=== PATIENT | female | born 2000 | race American Indian/Alaskan Native ===

== ENCOUNTER 2022-05-02 11:38 | Outpatient (CLI) | payer MEDICAID ==
[2022-05-02 12:34] VITALS: BP 134/87
--- NOTE | 2022-05-02 13:19 | Ultrasound Report ---
US OB BPP wo non-stress, US OB limited INDICATION / CLINICAL INFORMATION: well being. COMPARISON: None available. FINDINGS: BREATHING MOVEMENT = 2 GROSS BODY MOVEMENT = 2 TONE = 2 QUALITATIVE AMNIOTIC FLUID VOLUME = 2 TOTAL BIOPHYSICAL SCORE = 8/8 AMNIOTIC FLUID INDEX (cm) = 9.3 PRESENTATION: Cephalic. HEART RATE (beats per minute): 155 IMPRESSION: 1. biophysical profile = 88 2. Amniotic fluid index is within normal limits, measuring 9.3 cm. Signer Name: Kenn Schmitz MD Signed: 05/02/2022 1:15 PM Workstation Name: [id number]
[2022-05-02] MEDS ORDERED: LACTATED RINGERS 500 ML IV ONE (14:36)
== END 2022-05-02 14:38 | disposition home or self-care (01) ==
LOC: TRG 11:38 → APU 11:41 → TRG 14:38
PROVIDERS: ATTEND Obstetrics & Gynecology
DX: Z34.93 Encounter for supervision of normal pregnancy, unspecified, third trimester (principal); Z3A.36 36 weeks gestation of pregnancy
CPT/HCPCS: 76815; 76819; 87116

== ENCOUNTER 2022-05-09 21:37 | Inpatient (IN) | payer MEDICAID ==
[2022-05-09 22:49] LABS: Hematocrit 29.8 % (30.3-42.9); Hemoglobin 9.9 gm/dl (10.1-14.3); Mean Corpuscular HGB Conc 33 % (30-34); Mean Corpuscular Volume 87 fl (79-97); Platelet Count 241 K/mm3 (140-440); Red Blood Count 3.43 M/mm3 (3.65-5.03); Red Cell Distribution Width 12.9 % (13.2-15.2)
[2022-05-09 23:03] LABS: Creatinine,Urine 206.1 mg/dL (0.1-20.0)
[2022-05-09 23:19] LABS: Alanine Aminotransferase 25 units/L (7-56); Albumin 2.7 g/dL (3.9-5); BUN/Creatinine Ratio 14; Blood Urea Nitrogen 11 mg/dL (7-17); Calcium 8.7 mg/dL (8.4-10.2); Hemolysis Index 10
[2022-05-09 23:27] LABS: Bacteria,Urine 1+ /HPF (Negative); Mucus,Urine 1+ /HPF
[2022-05-09 23:30] LABS: Bilirubin,Urine Negative (Negative); Color,Urine Yellow (Yellow)
[2022-05-09 23:31] LABS: Blood,Urine Negative (Negative)
[2022-05-09] MEDS ORDERED: LACTATED RINGERS 1,000 ML ONE (23:33)
[2022-05-09] MEDS ORDERED: LACTATED RINGERS 1,000 ML IV ONE (23:34)
[2022-05-10 00:14] LABS: Basophils % (Manual) 0 % (0.0-1.8); Total Cells Counted 100
[2022-05-10] MEDS ORDERED: fentaNYL 100 MCG/2 ML INJ IV PRN (00:26)
[2022-05-10] MEDS ORDERED: BUTORPHANOL 2 MG/1 ML INJ IV PRN (00:26)
[2022-05-10] MEDS ORDERED: ePHEDrine SULFATE 50 MG/1 ML INJ IV PRN (00:26)
[2022-05-10] MEDS ORDERED: TERBUTALINE 1 MG/1 ML INJ SUB-Q PRN (00:26)
[2022-05-10] MEDS ORDERED: CARBOPROST TROMETHAMINE 250 MCG/1 ML INJ IM PRN (00:26)
[2022-05-10 00:31] LABS: Platelet Estimate Consistent w Auto
--- NOTE | 2022-05-10 00:31 | History and Physical Report ---
History of Present Illness Date of examination: 05/10/22 Date of admission: 05/10/2022 Chief complaint: New onset seizure History of present illness: 21-year-old primigravida at 37-4/7 weeks gestation presents to OB triage via EMS after having a witnessed grand mal seizure at home. There is an associated headache. There is no diplopia, right upper quadrant pain, or scotomata. The patient is disoriented. She follows commands. She is oriented to place and person. She is not oriented to time. She does not have a history of seizure disorder. She receives care at [facility]; her care provider (Dr. Anusha Hemphill) happened to be in OB triage to evaluate this patient with me. Dr. Hemphill explained that this patient did not appear to be behaving as her usual self. The patient's family members have witnessed the grand mal seizure concurred. The patient appeared to be in the postictal state. UPCR performed in OB triage revealed proteinuria. Urine drug screen was negative. 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 There were no elevated blood pressures After taking the totality of all of this data into consideration, eclampsia was considered to be the most likely etiology. As such, the patient was admitted to labor and delivery for management of eclampsia and induction of labor. Past History Past Medical History: other (Systemic lupus erythematosus, Sjogren's syndrome) Past Surgical History: no surgical history Family/Genetic History: none Social history: no significant social history - Obstetrical History Expected Date of Delivery: 05/27/22 Actual Gestation: 37 Week(s) 4 Day(s) : 1 Para: 0 Medications and Allergies Allergies Allergy/AdvReac Type Severity Reaction Status Date / Time No Known Allergies Allergy Unverified 05/02/22 12:28 Active Meds: Active Medications Acetaminophen (Acetaminophen 325 Mg Tab) 650 mg PO Q4H PRN PRN Reason: Pain, Mild (1-3) Butorphanol Tartrate (Butorphanol 2 Mg/1 Ml Inj) 2 mg IV Q2H PRN PRN Reason: Pain, Moderate(4-6) LABOR PAIN Carboprost Tromethamine (Carboprost Tromethamine 250 Mcg/1 Ml Inj) 250 mcg IM ONCE PRN PRN Reason: Uterine Bleeding Ephedrine Sulfate (Ephedrine Sulfate 50 Mg/1 Ml Inj) 10 mg IV Q2M PRN PRN Reason: Hypotension Fentanyl (Fentanyl 100 Mcg/2 Ml Inj) 100 mcg IV Q2H PRN PRN Reason: Pain,Severe (7-10) LABOR PAIN Lactated Ringer's (Lactated Ringers) 1,000 mls @ 125 mls/hr IV DIRECT SANDRO Oxytocin/Sodium Chloride (Pitocin/Ns 30 Unit/500ml) 30 units in 500 mls @ 40 mls/hr IV TITR SANDRO; Protocol Misoprostol (Misoprostol 25 Mcg Tab) 25 mcg PO Q4H SANDRO Stop: 05/10/22 13:01 Terbutaline Sulfate (Terbutaline 1 Mg/1 Ml Inj) 0.25 mg SUB-Q ONCE PRN PRN Reason: Hyperstimulation/Hypertonicity Review of Systems All systems: negative - Vital Signs Vital signs: Vital Signs Pulse Pulse Ox 143 H 95 05/09/22 21:46 05/09/22 21:46 Temp Pulse Resp BP Pulse Ox 100.5 F H 128 H 18 101/60 97 05/09/22 21:48 05/10/22 00:28 05/09/22 21:48 05/10/22 00:22 05/10/22 00:28 - Physical Exam Breasts: Positive: normal Cardiovascular: Regular rate Lungs: Positive: Normal air movement Abdomen: Positive: normal appearance, normal bowel sounds Vulva: both: normal Vagina: Positive: normal moisture Uterus: Positive: enlarged Adnexa: both: normal Anus/Rectum: Positive: normal perianal skin Extremities: Positive: normal Deep Tendon Reflex Grade: Normal +2 - Obstetrical FHR: category 1 Cervical Dilatation: 0 Cervical Effacement Percentage: 0 station: -3 Uterine Contraction Pattern: Absent Results Result Diagrams: 05/10/22 01:26 05/09/22 22:30 Abnormal lab results 05/09/22 05/09/22 05/09/22 Range/Units 22:30 22:30 22:30 RBC 3.43 L (3.65-5.03) M/mm3 Hgb 9.9 L (10.1-14.3) gm/dl Hct 29.8 L (30.3-42.9) % RDW 12.9 L (13.2-15.2) % Sodium 131 L (137-145) mmol/L Carbon Dioxide 17 L (22-30) mmol/L Alkaline Phosphatase 163 H (35-129) units/L Total Protein 8.4 H (6.3-8.2) g/dL Albumin 2.7 L (3.9-5) g/dL Urine WBC (Auto) 54.0 H (0.0-6.0) /HPF Urine Creatinine (0.1-20.0) mg/dL Urine Total Protein (5-11.8) mg/dL 05/09/22 Range/Units 22:30 RBC (3.65-5.03) M/mm3 Hgb (10.1-14.3) gm/dl Hct (30.3-42.9) % RDW (13.2-15.2) % Sodium (137-145) mmol/L Carbon Dioxide (22-30) mmol/L Alkaline Phosphatase (35-129) units/L Total Protein (6.3-8.2) g/dL Albumin (3.9-5) g/dL Urine WBC (Auto) (0.0-6.0) /HPF Urine Creatinine 206.1 H (0.1-20.0) mg/dL Urine Total Protein 92 H (5-11.8) mg/dL Urine Protein to Creatinine Ratio (UPCR)= 0.44. There is significant proteinuria. Estimated 24 hour urine protein= 553 mg Urine toxicology screen was negative. Ultrasound: report reviewed (OB Ultrasound Limited= SLIUP. Anterior placenta. Vertex. EFW= 2573 g (18th %-ile). KAYE= 12.9 cm.), image reviewed (CT head= possible PRES) Assessment and Plan - Patient Problems (1) 37 weeks gestation of Current Visit: Yes Status: Acute Plan to address problem: care is up-to-date at [facility]. (2) Eclampsia affecting in third trimester Current Visit: Yes Status: Acute Plan to address problem: Although this patient does not have a clear hypertensive disorder of (apart from isolated proteinuria), the diagnosis of eclampsia can be made in a person with seizures who has the typical clinical and neuroimaging findings of reversible posterior leukoencephalopathy syndrome (Am J Obstet Gynecol. 2016 May;215(2):239.e1-5.) Hence, out of an abundance of caution, I believe that the most plausible reason for this patient's new onset seizure is eclampsia. Start intravenous magnesium sulfate for seizure prophylaxis and move forward with induction of labor for delivery. (3) Encounter for induction of labor Current Visit: Yes Status: Acute Plan to address problem: Cytotec 25 mcg p.o. every 4 hours was ordered for cervical ripening. Cook's catheter is to be placed for further cervical ripening. A dose of IMN is to be administered as well.
[2022-05-10 00:34] LABS: Anisocytosis 1+
[2022-05-10 00:35] LABS: Amphetamine Screen,Urine PRESUMPTIVE NEGATIVE; Benzodiazepines Screen,Urine PRESUMPTIVE NEGATIVE; Cannabinoid Screen,Urine PRESUMPTIVE NEGATIVE; Cocaine Screen,Urine PRESUMPTIVE NEGATIVE; Methadone Screen,Urine PRESUMPTIVE NEGATIVE; Opiate Screen,Urine PRESUMPTIVE NEGATIVE
[2022-05-10] MEDS ORDERED: miSOPROStol 25 MCG TAB PO SCH (01:00)
[2022-05-10] MEDS ORDERED: OXYTOCIN DRIP 30 UNITS/500 ML BAG IV SCH ×2 (01:00→20:00)
--- NOTE | 2022-05-10 01:50 | Cat Scan Report ---
CT HEAD WITHOUT CONTRAST INDICATION / CLINICAL INFORMATION: , new onset sezure, please eval for PRES. TECHNIQUE: CT head was performed without administration of intravenous contrast. All CT scans at this location are performed using CT dose reduction for ALARA by means of automated exposure control. COMPARISON: None available. FINDINGS: CEREBRAL HEMISPHERES: Some motion artifact is present however there appears to be bilateral mild symm etric hypoattenuation of occipital white matter. Sparks-white matter distinction is otherwise within no rmal limits. No midline shift. No mass effect. Basal cisterns are patent. HEMORRHAGE: None. CEREBELLUM / BRAINSTEM: No significant abnormality. ORBITS: No significant abnormality. SOFT TISSUES: No significant abnormality. SKULL: No significant abnormality. PARANASAL SINUSES / MASTOID AIR CELLS: Normal as visualized. ADDITIONAL FINDINGS: None. IMPRESSION: 1. Subtle hypoattenuation in the bilateral occipital white matter extending to subcortical white [place] er is suggested which could be compatible with posterior reversible encephalopathy syndrome. MRI is r ecommended for further characterization. Signer Name: Joby Burger II, MD Signed: 05/10/2022 1:45 AM Workstation Name: [id number]
--- NOTE | 2022-05-10 01:57 | Ultrasound Report ---
US OB follow up INDICATION / CLINICAL INFORMATION: efw,kaye,placenta COMPARISON: Limited OB ultrasound 05/02/2022. TECHNIQUE: Using a transcutaneous probe, multiple grayscale, color Doppler, and spectral Doppler imag es of the uterus and fetus were captured and stored. FINDINGS: A single cephalic fetus is demonstrated heart rate 168 bpm. The amniotic fluid index is within normal limits measuring 12.9 cm. A grade 1 placenta is present within the left lateral/fundal location. Biparietal Diameter = 9.2 cm = 37, 1 weeks, days Head Circumference = 32.1 cm = 36, 2 weeks, days Abdominal Circumference = 31.8 cm = 35, 5 weeks, days Femur Length = 6.8 cm = 34, 6 weeks, days Average Ultrasound Age (AUA) = 36, 0 weeks, days. EDC 06/06/2022. Clinical aspect of gestational age based on LMP of 08/20/2021 is 37 weeks 3 days. Estimated weight = 2753 g. Growth percentile is 18%. IMPRESSION: 1. Single living fetus with estimated weight of 2753 g, normal KAYE, and no ultrasound abnormali ty of the placental margin or interface.. Signer Name: Joby Burger II, MD Signed: 05/10/2022 1:52 AM Workstation Name: [id number]
[2022-05-10 02:01] LABS: Hematocrit 30.8 % (30.3-42.9); Hemoglobin 10.6 gm/dl (10.1-14.3)
[2022-05-10] MEDS: LACTATED RINGERS 1,000 ML IV SCH ×2 (04:19→18:57)
[2022-05-10] MEDS: ACETAMINOPHEN 325 MG TAB PO PRN ×2 (04:32→19:42)
[2022-05-10] MEDS ORDERED: MAGNESIUM SULFATE 4 GM/100 ML BAG IV ONE (06:00)
[2022-05-10] MEDS ORDERED: MAGNESIUM SULFATE 2 GM/50 ML BAG IV ONE (06:00)
[2022-05-10] MEDS: MAGNESIUM SULFATE 40GM/1000ML 40 GM/1,000 ML BAG IV SCH (07:30)
--- NOTE | 2022-05-10 18:09 | Progress Note ---
Assessment and Plan A: 37.4 weeks - Eclampsia on Magnesium P: Continue magnesium Mcclellan Bulb out Start Pitocin Subjective - Subjective Date of service: 05/10/22 Principal diagnosis: 37.4 weeks Eclampsia Objective - Vital Signs Vital Signs: Vital Signs - 12hr 05/10/22 05/10/22 05/10/22 06:09 06:14 06:19 Temperature Pulse Rate 96 H 101 H 112 H Respiratory Rate Blood Pressure O2 Sat by Pulse 97 97 96 Oximetry O2 Sat by Pulse Oximetry [ Posterior Bilateral Throughout] 05/10/22 05/10/22 05/10/22 06:24 06:29 06:34 Temperature Pulse Rate 94 H 105 H 104 H Respiratory Rate Blood Pressure O2 Sat by Pulse 97 99 97 Oximetry O2 Sat by Pulse Oximetry [ Posterior Bilateral Throughout] 05/10/22 05/10/22 05/10/22 06:39 06:44 06:47 Temperature Pulse Rate 101 H 91 H 85 Respiratory Rate Blood Pressure 127/75 O2 Sat by Pulse 97 96 Oximetry O2 Sat by Pulse Oximetry [ Posterior Bilateral Throughout] 05/10/22 05/10/22 05/10/22 06:49 06:54 06:59 Temperature Pulse Rate 99 H 97 H 91 H Respiratory Rate Blood Pressure O2 Sat by Pulse 98 97 98 Oximetry O2 Sat by Pulse Oximetry [ Posterior Bilateral Throughout] 05/10/22 05/10/22 05/10/22 07:04 07:09 07:14 Temperature Pulse Rate 96 H 99 H 110 H Respiratory Rate Blood Pressure O2 Sat by Pulse 98 99 98 Oximetry O2 Sat by Pulse Oximetry [ Posterior Bilateral Throughout] 05/10/22 05/10/22 05/10/22 07:17 07:19 07:24 Temperature Pulse Rate 93 H 85 81 Respiratory Rate Blood Pressure 118/72 O2 Sat by Pulse 98 98 Oximetry O2 Sat by Pulse Oximetry [ Posterior Bilateral Throughout] 05/10/22 05/10/22 05/10/22 07:29 07:34 07:39 Temperature Pulse Rate 94 H 93 H 96 H Respiratory Rate Blood Pressure O2 Sat by Pulse 97 98 97 Oximetry O2 Sat by Pulse Oximetry [ Posterior Bilateral Throughout] 05/10/22 05/10/22 05/10/22 07:44 07:48 07:49 Temperature Pulse Rate 96 H 94 H 97 H Respiratory Rate Blood Pressure 123/74 O2 Sat by Pulse 97 97 Oximetry O2 Sat by Pulse Oximetry [ Posterior Bilateral Throughout] 05/10/22 05/10/22 05/10/22 07:54 07:59 08:04 Temperature Pulse Rate 95 H 97 H 94 H Respiratory Rate Blood Pressure O2 Sat by Pulse 97 98 97 Oximetry O2 Sat by Pulse Oximetry [ Posterior Bilateral Throughout] 05/10/22 05/10/22 05/10/22 08:09 08:14 08:17 Temperature Pulse Rate 100 H 95 H 95 H Respiratory Rate Blood Pressure 122/77 O2 Sat by Pulse 97 98 Oximetry O2 Sat by Pulse Oximetry [ Posterior Bilateral Throughout] 05/10/22 05/10/22 05/10/22 08:19 08:24 08:27 Temperature 97.8 F Pulse Rate 98 H 94 H Respiratory 20 Rate Blood Pressure O2 Sat by Pulse 97 96 Oximetry O2 Sat by Pulse Oximetry [ Posterior Bilateral Throughout] 05/10/22 05/10/22 05/10/22 08:29 08:31 08:34 Temperature Pulse Rate 96 H 95 H Respiratory Rate Blood Pressure O2 Sat by Pulse 97 97 Oximetry O2 Sat by Pulse 98 Oximetry [ Posterior Bilateral Throughout] 05/10/22 05/10/22 05/10/22 08:39 08:44 08:49 Temperature Pulse Rate 96 H 87 92 H Respiratory Rate Blood Pressure 120/73 O2 Sat by Pulse 97 97 97 Oximetry O2 Sat by Pulse Oximetry [ Posterior Bilateral Throughout] 05/10/22 05/10/22 05/10/22 08:54 08:59 09:04 Temperature Pulse Rate 93 H 94 H 92 H Respiratory Rate Blood Pressure O2 Sat by Pulse 97 97 97 Oximetry O2 Sat by Pulse Oximetry [ Posterior Bilateral Throughout] 05/10/22 05/10/22 05/10/22 09:09 09:14 09:17 Temperature Pulse Rate 99 H 92 H 90 Respiratory Rate Blood Pressure 124/74 O2 Sat by Pulse 97 97 Oximetry O2 Sat by Pulse Oximetry [ Posterior Bilateral Throughout] 05/10/22 05/10/22 05/10/22 09:19 09:24 09:29 Temperature Pulse Rate 88 91 H 90 Respiratory Rate Blood Pressure O2 Sat by Pulse 98 98 98 Oximetry O2 Sat by Pulse Oximetry [ Posterior Bilateral Throughout] 05/10/22 05/10/22 05/10/22 09:34 09:39 09:44 Temperature Pulse Rate 91 H 87 89 Respiratory Rate Blood Pressure O2 Sat by Pulse 99 97 98 Oximetry O2 Sat by Pulse Oximetry [ Posterior Bilateral Throughout] 05/10/22 05/10/22 05/10/22 09:48 09:49 09:54 Temperature Pulse Rate 89 87 91 H Respiratory Rate Blood Pressure 119/70 O2 Sat by Pulse 98 97 Oximetry O2 Sat by Pulse Oximetry [ Posterior Bilateral Throughout] 05/10/22 05/10/22 05/10/22 09:59 10:04 10:09 Temperature Pulse Rate 91 H 91 H 91 H Respiratory Rate Blood Pressure O2 Sat by Pulse 98 98 98 Oximetry O2 Sat by Pulse Oximetry [ Posterior Bilateral Throughout] 05/10/22 05/10/22 05/10/22 10:14 10:17 10:19 Temperature Pulse Rate 91 H 92 H 92 H Respiratory Rate Blood Pressure 115/64 O2 Sat by Pulse 97 97 Oximetry O2 Sat by Pulse Oximetry [ Posterior Bilateral Throughout] 05/10/22 05/10/22 05/10/22 10:24 10:29 10:34 Temperature Pulse Rate 94 H 92 H 94 H Respiratory Rate Blood Pressure O2 Sat by Pulse 98 98 98 Oximetry O2 Sat by Pulse Oximetry [ Posterior Bilateral Throughout] 05/10/22 05/10/22 05/10/22 10:39 10:44 10:47 Temperature Pulse Rate 95 H 92 H 94 H Respiratory Rate Blood Pressure 117/74 O2 Sat by Pulse 98 98 Oximetry O2 Sat by Pulse Oximetry [ Posterior Bilateral Throughout] 05/10/22 05/10/22 05/10/22 10:49 10:51 10:54 Temperature 97.8 F Pulse Rate 117 H 88 Respiratory 18 Rate Blood Pressure O2 Sat by Pulse 99 99 Oximetry O2 Sat by Pulse Oximetry [ Posterior Bilateral Throughout] 05/10/22 05/10/22 05/10/22 10:59 11:04 11:09 Temperature Pulse Rate 90 90 89 Respiratory Rate Blood Pressure O2 Sat by Pulse 99 98 98 Oximetry O2 Sat by Pulse Oximetry [ Posterior Bilateral Throughout] 05/10/22 05/10/22 05/10/22 11:14 11:19 11:24 Temperature Pulse Rate 89 90 92 H Respiratory Rate Blood Pressure O2 Sat by Pulse 98 99 98 Oximetry O2 Sat by Pulse Oximetry [ Posterior Bilateral Throughout] 05/10/22 05/10/22 05/10/22 11:29 11:34 11:39 Temperature Pulse Rate 94 H 92 H 91 H Respiratory Rate Blood Pressure O2 Sat by Pulse 97 98 98 Oximetry O2 Sat by Pulse Oximetry [ Posterior Bilateral Throughout] 05/10/22 05/10/22 05/10/22 11:44 11:49 11:54 Temperature Pulse Rate 96 H 88 92 H Respiratory Rate Blood Pressure 122/79 O2 Sat by Pulse 99 99 98 Oximetry O2 Sat by Pulse Oximetry [ Posterior Bilateral Throughout] 05/10/22 05/10/22 05/10/22 11:59 12:04 12:09 Temperature Pulse Rate 93 H 93 H 94 H Respiratory Rate Blood Pressure O2 Sat by Pulse 98 98 98 Oximetry O2 Sat by Pulse Oximetry [ Posterior Bilateral Throughout] 05/10/22 05/10/22 05/10/22 12:14 12:19 12:24 Temperature Pulse Rate 94 H 93 H 97 H Respiratory Rate Blood Pressure O2 Sat by Pulse 99 98 98 Oximetry O2 Sat by Pulse Oximetry [ Posterior Bilateral Throughout] 05/10/22 05/10/22 05/10/22 12:29 12:34 12:39 Temperature Pulse Rate 93 H 92 H 94 H Respiratory Rate Blood Pressure O2 Sat by Pulse 98 99 98 Oximetry O2 Sat by Pulse Oximetry [ Posterior Bilateral Throughout] 05/10/22 05/10/22 05/10/22 12:44 12:48 12:49 Temperature Pulse Rate 107 H 97 H 109 H Respiratory Rate Blood Pressure 118/72 O2 Sat by Pulse 98 98 Oximetry O2 Sat by Pulse Oximetry [ Posterior Bilateral Throughout] 05/10/22 05/10/22 05/10/22 12:54 12:59 13:04 Temperature Pulse Rate 92 H 96 H 96 H Respiratory Rate Blood Pressure O2 Sat by Pulse 98 97 98 Oximetry O2 Sat by Pulse Oximetry [ Posterior Bilateral Throughout] 05/10/22 05/10/22 05/10/22 13:09 13:14 13:19 Temperature Pulse Rate 96 H 97 H 97 H Respiratory Rate Blood Pressure O2 Sat by Pulse 98 97 98 Oximetry O2 Sat by Pulse Oximetry [ Posterior Bilateral Throughout] 05/10/22 05/10/22 05/10/22 13:24 13:29 13:34 Temperature Pulse Rate 97 H 96 H 106 H Respiratory Rate Blood Pressure O2 Sat by Pulse 98 99 98 Oximetry O2 Sat by Pulse Oximetry [ Posterior Bilateral Throughout] 05/10/22 05/10/22 05/10/22 13:39 13:44 13:48 Temperature Pulse Rate 94 H 98 H 109 H Respiratory Rate Blood Pressure 115/70 O2 Sat by Pulse 98 98 Oximetry O2 Sat by Pulse Oximetry [ Posterior Bilateral Throughout] 05/10/22 05/10/22 05/10/22 13:49 13:54 13:59 Temperature Pulse Rate 89 99 H 105 H Respiratory Rate Blood Pressure O2 Sat by Pulse 98 98 97 Oximetry O2 Sat by Pulse Oximetry [ Posterior Bilateral Throughout] 05/10/22 05/10/22 05/10/22 14:04 14:09 14:14 Temperature Pulse Rate 103 H 102 H 94 H Respiratory Rate Blood Pressure O2 Sat by Pulse 98 98 98 Oximetry O2 Sat by Pulse Oximetry [ Posterior Bilateral Throughout] 05/10/22 05/10/22 05/10/22 14:19 14:24 14:29 Temperature Pulse Rate 96 H 98 H 94 H Respiratory Rate Blood Pressure O2 Sat by Pulse 97 98 97 Oximetry O2 Sat by Pulse Oximetry [ Posterior Bilateral Throughout] 05/10/22 05/10/22 05/10/22 14:34 14:39 14:44 Temperature Pulse Rate 97 H 111 H 109 H Respiratory Rate Blood Pressure O2 Sat by Pulse 97 98 98 Oximetry O2 Sat by Pulse Oximetry [ Posterior Bilateral Throughout] 05/10/22 05/10/22 05/10/22 14:48 14:49 14:54 Temperature Pulse Rate 94 H 95 H 96 H Respiratory Rate Blood Pressure 96/57 O2 Sat by Pulse 97 98 Oximetry O2 Sat by Pulse Oximetry [ Posterior Bilateral Throughout] 05/10/22 05/10/22 05/10/22 14:59 15:04 15:09 Temperature Pulse Rate 94 H 94 H 96 H Respiratory Rate Blood Pressure O2 Sat by Pulse 97 97 97 Oximetry O2 Sat by Pulse Oximetry [ Posterior Bilateral Throughout] 05/10/22 05/10/22 05/10/22 15:14 15:19 15:24 Temperature Pulse Rate 97 H 98 H 99 H Respiratory Rate Blood Pressure O2 Sat by Pulse 97 97 96 Oximetry O2 Sat by Pulse Oximetry [ Posterior Bilateral Throughout] 05/10/22 05/10/22 05/10/22 15:29 15:34 15:39 Temperature Pulse Rate 99 H 99 H 99 H Respiratory Rate Blood Pressure O2 Sat by Pulse 97 96 98 Oximetry O2 Sat by Pulse Oximetry [ Posterior Bilateral Throughout] 05/10/22 05/10/22 05/10/22 15:44 15:48 15:49 Temperature Pulse Rate 100 H 98 H 100 H Respiratory Rate Blood Pressure 101/55 O2 Sat by Pulse 97 97 Oximetry O2 Sat by Pulse Oximetry [ Posterior Bilateral Throughout] 05/10/22 05/10/22 05/10/22 15:54 15:59 16:04 Temperature Pulse Rate 102 H 104 H 115 H Respiratory Rate Blood Pressure O2 Sat by Pulse 97 97 97 Oximetry O2 Sat by Pulse Oximetry [ Posterior Bilateral Throughout] 05/10/22 05/10/22 05/10/22 16:09 16:14 16:19 Temperature Pulse Rate 98 H 97 H 111 H Respiratory Rate Blood Pressure O2 Sat by Pulse 97 97 98 Oximetry O2 Sat by Pulse Oximetry [ Posterior Bilateral Throughout] 05/10/22 05/10/22 05/10/22 16:24 16:29 16:34 Temperature Pulse Rate 101 H 104 H 100 H Respiratory Rate Blood Pressure O2 Sat by Pulse 98 97 98 Oximetry O2 Sat by Pulse Oximetry [ Posterior Bilateral Throughout] 05/10/22 05/10/22 05/10/22 16:39 16:44 16:48 Temperature Pulse Rate 102 H 105 H 103 H Respiratory Rate Blood Pressure 111/64 O2 Sat by Pulse 97 97 Oximetry O2 Sat by Pulse Oximetry [ Posterior Bilateral Throughout] 05/10/22 05/10/22 05/10/22 16:49 16:54 16:59 Temperature Pulse Rate 106 H 116 H 101 H Respiratory Rate Blood Pressure O2 Sat by Pulse 98 97 97 Oximetry O2 Sat by Pulse Oximetry [ Posterior Bilateral Throughout] 05/10/22 05/10/22 05/10/22 17:04 17:09 17:14 Temperature Pulse Rate 114 H 119 H 113 H Respiratory Rate Blood Pressure O2 Sat by Pulse 97 98 99 Oximetry O2 Sat by Pulse Oximetry [ Posterior Bilateral Throughout] 05/10/22 05/10/22 05/10/22 17:19 17:24 17:29 Temperature Pulse Rate 103 H 108 H 101 H Respiratory Rate Blood Pressure O2 Sat by Pulse 98 98 98 Oximetry O2 Sat by Pulse Oximetry [ Posterior Bilateral Throughout] 05/10/22 05/10/22 05/10/22 17:34 17:36 17:38 Temperature Pulse Rate 105 H 104 H 106 H Respiratory Rate Blood Pressure 122/75 126/73 O2 Sat by Pulse 98 Oximetry O2 Sat by Pulse Oximetry [ Posterior Bilateral Throughout] 05/10/22 05/10/22 05/10/22 17:39 17:44 17:49 Temperature Pulse Rate 113 H 110 H 114 H Respiratory Rate Blood Pressure 142/89 O2 Sat by Pulse 97 98 99 Oximetry O2 Sat by Pulse Oximetry [ Posterior Bilateral Throughout] 05/10/22 05/10/22 05/10/22 17:54 17:59 18:04 Temperature Pulse Rate 111 H 106 H 120 H Respiratory Rate Blood Pressure O2 Sat by Pulse 98 98 100 Oximetry O2 Sat by Pulse Oximetry [ Posterior Bilateral Throughout] - Exam Breasts: deferred Cardiovascular: Regular rate Lungs: Clear to auscultation Abdomen: Present: soft Vulva: both: normal FHR: category 2 Uterine Contraction Monitor Mode: External Cervical Dilatation: 5 Cervical Effacement Percentage: 60 station: -2 Uterine Contraction Pattern: Irregular Uterine Contraction Intensity: Moderate Deep Tendon Reflex Grade: Normal +2 - Labs Labs: Abnormal Labs 05/09/22 05/09/22 05/09/22 22:30 22:30 22:30 RBC 3.43 L Hgb 9.9 L Hct 29.8 L RDW 12.9 L Seg Neuts % (Manual) 93.0 H Lymphocytes % (Manual) 4.0 L Lymphocytes # (Manual) 0.2 L Sodium 131 L Carbon Dioxide 17 L Alkaline Phosphatase 163 H Lactate Dehydrogenase 246 H Total Protein 8.4 H Albumin 2.7 L Urine WBC (Auto) 54.0 H Urine Creatinine Urine Total Protein 05/09/22 22:30 RBC Hgb Hct RDW Seg Neuts % (Manual) Lymphocytes % (Manual) Lymphocytes # (Manual) Sodium Carbon Dioxide Alkaline Phosphatase Lactate Dehydrogenase Total Protein Albumin Urine WBC (Auto) Urine Creatinine 206.1 H Urine Total Protein 92 H Laboratory Results - last 24 hr 05/09/22 05/09/22 05/09/22 22:30 22:30 22:30 WBC 6.0 RBC 3.43 L Hgb 9.9 L Hct 29.8 L MCV 87 MCH 29 MCHC 33 RDW 12.9 L Plt Count 241 Add Manual Diff Complete Total Counted 100 Seg Neutrophils % Splunk Developer Seg Neuts % (Manual) 93.0 H Band Neutrophils % 0 Lymphocytes % (Manual) 4.0 L Reactive Lymphs % (Man) 0 Monocytes % (Manual) 2.0 Eosinophils % (Manual) 1.0 Basophils % (Manual) 0 Metamyelocytes % 0 Myelocytes % 0 Promyelocytes % 0 Blast Cells % 0 Nucleated RBC % Not Reportable Seg Neutrophils # Man 5.6 Band Neutrophils # 0.0 Lymphocytes # (Manual) 0.2 L Abs React Lymphs (Man) 0.0 Monocytes # (Manual) 0.1 Eosinophils # (Manual) 0.1 Basophils # (Manual) 0.0 Metamyelocytes # 0.0 Myelocytes # 0.0 Promyelocytes # 0.0 Blast Cells # 0.0 WBC Morphology Not Reportable Hypersegmented Neuts Not Reportable Hyposegmented Neuts Not Reportable Hypogranular Neuts Not Reportable Smudge Cells Not Reportable Toxic Granulation Not Reportable Toxic Vacuolation Not Reportable Dohle Bodies Not Reportable Pelger-Huet Anomaly Not Reportable Yolanda Rods Not Reportable Platelet Estimate Consistent w auto Clumped Platelets Not Reportable Plt Clumps, EDTA Not Reportable Large Platelets Not Reportable Giant Platelets Not Reportable Platelet Satelliting Not Reportable Plt Morphology Comment Not Reportable RBC Morphology Not Reportable Dimorphic RBCs Not Reportable Polychromasia Not Reportable Hypochromasia Not Reportable Poikilocytosis Not Reportable Anisocytosis 1+ Microcytosis Not Reportable Macrocytosis Not Reportable Spherocytes Not Reportable Pappenheimer Bodies Not Reportable Sickle Cells Not Reportable Target Cells Not Reportable Tear Drop Cells Not Reportable Ovalocytes Not Reportable Helmet Cells Not Reportable [place]endo[place] Bodies Not Reportable [place] Rings Not Reportable Revere Cells Not Reportable Bite Cells Not Reportable Crenated Cell Not Reportable Elliptocytes Not Reportable Acanthocytes (Spur) Not Reportable Rouleaux Not Reportable Hemoglobin C Crystals Not Reportable Schistocytes Not Reportable Malaria parasites Not Reportable Nick Bodies Not Reportable Hem Pathologist Commnt No Sodium 131 L Potassium 4.2 Chloride 99.4 Carbon Dioxide 17 L Anion Gap 19 BUN 11 Creatinine 0.8 Estimated GFR > 60 BUN/Creatinine Ratio 14 Glucose 97 Lactic Acid Calcium 8.7 Total Bilirubin 0.40 AST 27 ALT 25 Alkaline Phosphatase 163 H Lactate Dehydrogenase 246 H Total Protein 8.4 H Albumin 2.7 L Albumin/Globulin Ratio 0.5 Urine Color Yellow Urine Turbidity Clear Urine pH 5.0 Ur Specific [place] 1.015 Urine Protein 30 mg/dl Urine Glucose (UA) Negative Urine Ketones Negative Urine Blood Negative Urine Nitrite Negative Ur Reducing Substances Not Reportable Urine Bilirubin Negative Urine Ictotest Not Reportable Urine Urobilinogen 0.0 Ur Leukocyte Esterase Small Urine WBC (Auto) 54.0 H Urine RBC (Auto) 34.0 U Epithel Cells (Auto) 7.0 Urine Bacteria (Auto) 1+ Urine Mucus 1+ Urine Yeast (Budding) 1+ Urine Creatinine Urine Total Protein Urine Opiates Screen Urine Methadone Screen Ur Barbiturates Screen Ur Phencyclidine Scrn Ur Amphetamines Screen U Benzodiazepines Scrn Urine Cocaine Screen U Marijuana (THC) Screen Drugs of Abuse Note Blood Type Antibody Screen 05/09/22 05/09/22 05/09/22 22:30 22:30 22:30 WBC RBC Hgb Hct MCV MCH MCHC RDW Plt Count Add Manual Diff Total Counted Seg Neutrophils % Seg Neuts % (Manual) Band Neutrophils % Lymphocytes % (Manual) Reactive Lymphs % (Man) Monocytes % (Manual) Eosinophils % (Manual) Basophils % (Manual) Metamyelocytes % Myelocytes % Promyelocytes % Blast Cells % Nucleated RBC % Seg Neutrophils # Man Band Neutrophils # Lymphocytes # (Manual) Abs React Lymphs (Man) Monocytes # (Manual) Eosinophils # (Manual) Basophils # (Manual) Metamyelocytes # Myelocytes # Promyelocytes # Blast Cells # WBC Morphology Hypersegmented Neuts Hyposegmented Neuts Hypogranular Neuts Smudge Cells Toxic Granulation Toxic Vacuolation Dohle Bodies Pelger-Huet Anomaly Yolanda Rods Platelet Estimate Clumped Platelets Plt Clumps, EDTA Large Platelets Giant Platelets Platelet Satelliting Plt Morphology Comment RBC Morphology Dimorphic RBCs Polychromasia Hypochromasia Poikilocytosis Anisocytosis Microcytosis Macrocytosis Spherocytes Pappenheimer Bodies Sickle Cells Target Cells Tear Drop Cells Ovalocytes Helmet Cells Mendoza-[place] Bodies [place] Rings Farnaz Cells Bite Cells Crenated Cell Elliptocytes Acanthocytes (Spur) Rouleaux Hemoglobin C Crystals Schistocytes Malaria parasites Nick Bodies Hem Pathologist Commnt Sodium Potassium Chloride Carbon Dioxide Anion Gap BUN Creatinine Estimated GFR BUN/Creatinine Ratio Glucose Lactic Acid Calcium Total Bilirubin AST ALT Alkaline Phosphatase Lactate Dehydrogenase Total Protein Albumin Albumin/Globulin Ratio Urine Color Urine Turbidity Urine pH Ur Specific [place] Urine Protein Urine Glucose (UA) Urine Ketones Urine Blood Urine Nitrite Ur Reducing Substances Urine Bilirubin Urine Ictotest Urine Urobilinogen Ur Leukocyte Esterase Urine WBC (Auto) Urine RBC (Auto) U Epithel Cells (Auto) Urine Bacteria (Auto) Urine Mucus Urine Yeast (Budding) Urine Creatinine 206.1 H Urine Total Protein 92 H Urine Opiates Screen Presumptive negative Urine Methadone Screen Presumptive negative Ur Barbiturates Screen Presumptive negative Ur Phencyclidine Scrn Presumptive negative Ur Amphetamines Screen Presumptive negative U Benzodiazepines Scrn Presumptive negative Urine Cocaine Screen Presumptive negative U Marijuana (THC) Screen Presumptive negative Drugs of Abuse Note Disclamer Blood Type B POSITIVE Antibody Screen Negative 05/10/22 05/10/22 01:26 01:26 WBC RBC Hgb 10.6 Hct 30.8 MCV MCH MCHC RDW Plt Count Add Manual Diff Total Counted Seg Neutrophils % Seg Neuts % (Manual) Band Neutrophils % Lymphocytes % (Manual) Reactive Lymphs % (Man) Monocytes % (Manual) Eosinophils % (Manual) Basophils % (Manual) Metamyelocytes % Myelocytes % Promyelocytes % Blast Cells % Nucleated RBC % Seg Neutrophils # Man Band Neutrophils # Lymphocytes # (Manual) Abs React Lymphs (Man) Monocytes # (Manual) Eosinophils # (Manual) Basophils # (Manual) Metamyelocytes # Myelocytes # Promyelocytes # Blast Cells # WBC Morphology Hypersegmented Neuts Hyposegmented Neuts Hypogranular Neuts Smudge Cells Toxic Granulation Toxic Vacuolation Dohle Bodies Pelger-Huet Anomaly Yolanda Rods Platelet Estimate Clumped Platelets Plt Clumps, EDTA Large Platelets Giant Platelets Platelet Satelliting Plt Morphology Comment RBC Morphology Dimorphic RBCs Polychromasia Hypochromasia Poikilocytosis Anisocytosis Microcytosis Macrocytosis Spherocytes Pappenheimer Bodies Sickle Cells Target Cells Tear Drop Cells Ovalocytes Helmet Cells Mendoza-[place] Bodies [place] Rings Farnaz Cells Bite Cells Crenated Cell Elliptocytes Acanthocytes (Spur) Rouleaux Hemoglobin C Crystals Schistocytes Malaria parasites Nick Bodies Hem Pathologist Commnt Sodium Potassium Chloride Carbon Dioxide Anion Gap BUN Creatinine Estimated GFR BUN/Creatinine Ratio Glucose Lactic Acid 1.30 Calcium Total Bilirubin AST ALT Alkaline Phosphatase Lactate Dehydrogenase Total Protein Albumin Albumin/Globulin Ratio Urine Color Urine Turbidity Urine pH Ur Specific [place] Urine Protein Urine Glucose (UA) Urine Ketones Urine Blood Urine Nitrite Ur Reducing Substances Urine Bilirubin Urine Ictotest Urine Urobilinogen Ur Leukocyte Esterase Urine WBC (Auto) Urine RBC (Auto) U Epithel Cells (Auto) Urine Bacteria (Auto) Urine Mucus Urine Yeast (Budding) Urine Creatinine Urine Total Protein Urine Opiates Screen Urine Methadone Screen Ur Barbiturates Screen Ur Phencyclidine Scrn Ur Amphetamines Screen U Benzodiazepines Scrn Urine Cocaine Screen U Marijuana (THC) Screen Drugs of Abuse Note Blood Type Antibody Screen
[2022-05-11] MEDS ORDERED: ePHEDrine SULFATE 50 MG/1 ML INJ IV PRN (00:53)
[2022-05-11] MEDS ORDERED: NALOXONE 0.4 MG/1 ML INJ IV PRN ×3 (00:53→18:43)
[2022-05-11] MEDS ORDERED: BUPIVACAINE/PF (0.5%) 5 MG/1 ML 10 ML VIAL INFILTRATI ONE (00:56)
[2022-05-11] MEDS: LACTATED RINGERS 1,000 ML IV SCH ×2 (01:29→12:34)
--- NOTE | 2022-05-11 01:31 | Anesthesia Consultation ---
Anesthesia Consult and Med Hx Date of service: 05/11/22 - Airway Anesthetic Teeth Evaluation: Good ROM Head & Neck: Adequate Mental/Hyoid Distance: Adequate Mallampati Class: Class II Intubation Access Assessment: Probably Good - Pulmonary Exam CTA: Yes - Cardiac Exam Cardiac Exam: RRR - Pre-Operative Health Status ASA Pre-Surgery Classification: ASA2 Proposed Anesthetic Plan: Epidural - Pulmonary Hx Smoking: No Hx Asthma: No Hx Respiratory Symptoms: No SOB: No COPD: No Home Oxygen Therapy: No Hx Pneumonia: No Hx Sleep Apnea: No - Cardiovascular System Hx Hypertension: No Hx Coronary Artery Disease: No Hx Heart Attack/AMI: No Hx Angina: No Hx Percutaneous Transluminal Coronary Angioplasty (PTCA): No Hx Cardia Arrhythmia: No Hx Pacemaker: No Hx Internal Defibrillator: No Hx Valvular Heart Disease: No Hx Heart Murmur: No Hx Peripheral Vascular Disease: No - Central Nervous System Hx Neuromuscular Disorder: No Hx Seizures: Yes CVA: No Hx Back Pain: No Hx Psychiatric Problems: No - Gastrointestinal Hx Ulcer: No Hx Gastroesophageal Reflux Disease: No - Endocrine Hx Renal Disease: No Hx End Stage Renal Disease: No Hx Cirrhosis: No Hx Liver Disease: No Hx Insulin Dependent Diabetes: No Hx Non-Insulin Dependent Diabetes: No Hx Thyroid Disease: No Hx Hypothyroidism: No Hx Hyperthyroidism: No - Hematic Hx Anemia: Yes Hx Sickle Cell Disease: No - Other Systems Hx Alcohol Use: No Hx Substance Use: No Hx Cancer: No Hx Obesity: No
--- NOTE | 2022-05-11 01:32 | Progress Note ---
Labor Epidural - Labor Epidural Start Time: 01:06 Stop Time: 01:15 Performed by:: JCARLOS BIGGS Procedure: Epidural Requested for Labor Pain. H&P and PT Chart reviewed and consent obtained. Time out performed and the procedure was explained, all questions answered. Patient was placed in a sitting position with monitors applied. The PTs back was prepped and draped in usual sterile fashion. The Skin was localized with 3 mL of 1% lidocaine at L3-L4. A 17-gauge Touhy epidural needle was advanced to CHIDI with saline at 7 cm and no blood/CSF was noted via epidural needle. Epidural catheter was advanced to 12 cm. There was negative aspiration for blood and CSF in the catheter and negative response to a test dose of 3 ml 1.5% lidocaine w/ Epi and a sterile dressing was applied Patient tolerated the procedure well and there were no immediate complications noted.
--- NOTE | 2022-05-11 01:32 | Anesthesia Day of Surgery ---
Anesthesia Day of Surgery - Day of Surgery Patient Examined: Yes Patient H&P Reviewed: Yes Patient is NPO: Yes Beta Blockers: No Cardiac Clearance: No Pulmonary Clearance: No Eulalio's Test: N/A
[2022-05-11] MEDS: fentaNYL-BUPIV 2 MCG/ML-0.125% 200 MCG/100 ML BAG EPIDURAL SCH ×2 (02:05→12:17)
[2022-05-11] MEDS: ACETAMINOPHEN 325 MG TAB PO PRN (02:40)
--- NOTE | 2022-05-11 10:42 | Progress Note ---
Assessment and Plan A: IUP @ 37 1/7 Weeks Category II Tracing Eclampsia GBS Unknown P: AROM Internals x 2 Start Pitocin Augmentation Start GBS prophylaxis Continue MagSO4 as ordered Continue Standard Magnesium Precautions Subjective - Subjective Date of service: 05/11/22 Principal diagnosis: 37.4 weeks Eclampsia Patient reports: movement normal, other (Resting under epidural anesthesia) Objective - Vital Signs Vital Signs: Vital Signs - 12hr 05/10/22 05/10/22 05/10/22 22:39 22:44 22:48 Temperature Pulse Rate 115 H 111 H 102 H Respiratory Rate Blood Pressure 122/74 O2 Sat by Pulse 97 100 Oximetry 05/10/22 05/10/22 05/10/22 22:49 22:54 22:59 Temperature Pulse Rate 100 H 100 H 108 H Respiratory Rate Blood Pressure O2 Sat by Pulse 98 98 99 Oximetry 05/10/22 05/10/22 05/10/22 23:04 23:09 23:14 Temperature Pulse Rate 102 H 104 H 95 H Respiratory Rate Blood Pressure O2 Sat by Pulse 99 100 100 Oximetry 05/10/22 05/10/22 05/10/22 23:19 23:24 23:29 Temperature Pulse Rate 102 H 92 H 95 H Respiratory Rate Blood Pressure O2 Sat by Pulse 99 98 100 Oximetry 05/10/22 05/10/22 05/10/22 23:34 23:39 23:44 Temperature Pulse Rate 107 H 111 H 97 H Respiratory Rate Blood Pressure O2 Sat by Pulse 99 100 99 Oximetry 05/10/22 05/10/22 05/10/22 23:49 23:54 23:59 Temperature Pulse Rate 114 H 103 H 110 H Respiratory Rate Blood Pressure 124/72 O2 Sat by Pulse 98 100 99 Oximetry 05/11/22 05/11/22 05/11/22 00:04 00:08 00:09 Temperature Pulse Rate 107 H 100 H 122 H Respiratory Rate Blood Pressure O2 Sat by Pulse 98 89 99 Oximetry 05/11/22 05/11/22 05/11/22 00:14 00:19 00:24 Temperature Pulse Rate 111 H 110 H 105 H Respiratory Rate Blood Pressure O2 Sat by Pulse 98 98 99 Oximetry 05/11/22 05/11/22 05/11/22 00:29 00:34 00:39 Temperature Pulse Rate 108 H 111 H 107 H Respiratory Rate Blood Pressure O2 Sat by Pulse 100 100 100 Oximetry 05/11/22 05/11/22 05/11/22 00:44 00:48 00:49 Temperature Pulse Rate 103 H 102 H 114 H Respiratory Rate Blood Pressure 124/75 O2 Sat by Pulse 100 98 Oximetry 05/11/22 05/11/22 05/11/22 00:54 00:59 01:04 Temperature Pulse Rate 118 H 122 H 126 H Respiratory Rate Blood Pressure O2 Sat by Pulse 100 99 99 Oximetry 05/11/22 05/11/22 05/11/22 01:09 01:14 01:17 Temperature Pulse Rate 127 H 132 H 114 H Respiratory Rate Blood Pressure 128/80 O2 Sat by Pulse 99 99 Oximetry 05/11/22 05/11/22 05/11/22 01:19 01:20 01:23 Temperature Pulse Rate 129 H 113 H 118 H Respiratory Rate Blood Pressure 128/79 118/64 O2 Sat by Pulse 99 Oximetry 05/11/22 05/11/22 05/11/22 01:24 01:26 01:29 Temperature Pulse Rate 117 H 113 H 105 H Respiratory Rate Blood Pressure 107/65 105/59 O2 Sat by Pulse 100 99 Oximetry 05/11/22 05/11/22 05/11/22 01:32 01:34 01:35 Temperature 98.9 F Pulse Rate 111 H 113 H 117 H Respiratory 16 Rate Blood Pressure 101/53 97/53 O2 Sat by Pulse 100 99 Oximetry 05/11/22 05/11/22 05/11/22 01:38 01:39 01:41 Temperature Pulse Rate 114 H 108 H 109 H Respiratory Rate Blood Pressure 95/50 96/55 O2 Sat by Pulse 100 Oximetry 05/11/22 05/11/22 05/11/22 01:44 01:47 01:49 Temperature Pulse Rate 114 H 112 H 111 H Respiratory Rate Blood Pressure 99/56 104/57 O2 Sat by Pulse 100 100 Oximetry 05/11/22 05/11/22 05/11/22 01:50 01:53 01:54 Temperature Pulse Rate 117 H 108 H 119 H Respiratory Rate Blood Pressure 105/57 99/54 O2 Sat by Pulse 100 Oximetry 05/11/22 05/11/22 05/11/22 01:56 01:59 02:04 Temperature Pulse Rate 116 H 108 H 112 H Respiratory Rate Blood Pressure 100/58 O2 Sat by Pulse 100 100 Oximetry 05/11/22 05/11/22 05/11/22 02:09 02:12 02:14 Temperature Pulse Rate 113 H 108 H 134 H Respiratory Rate Blood Pressure 107/59 O2 Sat by Pulse 100 100 Oximetry 05/11/22 05/11/22 05/11/22 02:19 02:24 02:28 Temperature Pulse Rate 109 H 127 H 107 H Respiratory Rate Blood Pressure 109/59 O2 Sat by Pulse 100 100 Oximetry 05/11/22 05/11/22 05/11/22 02:29 02:34 02:39 Temperature Pulse Rate 110 H 109 H 120 H Respiratory Rate Blood Pressure O2 Sat by Pulse 100 100 97 Oximetry 05/11/22 05/11/22 05/11/22 02:42 02:44 02:49 Temperature Pulse Rate 117 H 104 H 101 H Respiratory Rate Blood Pressure 149/82 O2 Sat by Pulse 99 99 Oximetry 05/11/22 05/11/22 05/11/22 02:54 02:58 02:59 Temperature Pulse Rate 102 H 103 H 105 H Respiratory Rate Blood Pressure 113/69 O2 Sat by Pulse 98 98 Oximetry 05/11/22 05/11/22 05/11/22 03:01 03:04 03:09 Temperature Pulse Rate 94 H 101 H 100 H Respiratory Rate Blood Pressure 111/70 O2 Sat by Pulse 100 100 Oximetry 05/11/22 05/11/22 05/11/22 03:12 03:14 03:19 Temperature Pulse Rate 102 H 98 H 98 H Respiratory Rate Blood Pressure 113/70 O2 Sat by Pulse 100 100 Oximetry 05/11/22 05/11/22 05/11/22 03:24 03:27 03:28 Temperature Pulse Rate 100 H 96 H 126 H Respiratory Rate Blood Pressure 110/72 O2 Sat by Pulse 100 85 Oximetry 05/11/22 05/11/22 05/11/22 03:29 03:34 03:39 Temperature Pulse Rate 100 H 108 H 107 H Respiratory Rate Blood Pressure O2 Sat by Pulse 100 100 100 Oximetry 05/11/22 05/11/22 05/11/22 03:43 03:44 03:49 Temperature Pulse Rate 99 H 99 H 101 H Respiratory Rate Blood Pressure 119/65 O2 Sat by Pulse 100 100 Oximetry 05/11/22 05/11/22 05/11/22 03:54 03:58 03:59 Temperature Pulse Rate 105 H 100 H 101 H Respiratory Rate Blood Pressure 127/62 O2 Sat by Pulse 100 100 Oximetry 05/11/22 05/11/22 05/11/22 04:04 04:09 04:12 Temperature Pulse Rate 101 H 108 H 105 H Respiratory Rate Blood Pressure 113/61 O2 Sat by Pulse 100 100 Oximetry 05/11/22 05/11/22 05/11/22 04:14 04:19 04:24 Temperature Pulse Rate 103 H 108 H 102 H Respiratory Rate Blood Pressure O2 Sat by Pulse 100 100 100 Oximetry 05/11/22 05/11/22 05/11/22 04:27 04:29 04:34 Temperature Pulse Rate 131 H 126 H 126 H Respiratory Rate Blood Pressure 116/61 O2 Sat by Pulse 97 95 Oximetry 05/11/22 05/11/22 05/11/22 04:39 04:42 04:44 Temperature Pulse Rate 118 H 110 H 110 H Respiratory Rate Blood Pressure 110/57 O2 Sat by Pulse 99 96 Oximetry 05/11/22 05/11/22 05/11/22 04:49 04:54 04:57 Temperature Pulse Rate 126 H 109 H 106 H Respiratory Rate Blood Pressure 116/64 O2 Sat by Pulse 97 100 Oximetry 05/11/22 05/11/22 05/11/22 04:59 05:04 05:09 Temperature Pulse Rate 121 H 118 H 124 H Respiratory Rate Blood Pressure O2 Sat by Pulse 98 97 97 Oximetry 05/11/22 05/11/22 05/11/22 05:12 05:14 05:19 Temperature Pulse Rate 116 H 118 H 118 H Respiratory Rate Blood Pressure 86/50 O2 Sat by Pulse 98 98 Oximetry 05/11/22 05/11/22 05/11/22 05:24 05:29 05:30 Temperature 98.1 F Pulse Rate 130 H 112 H Respiratory 18 Rate Blood Pressure O2 Sat by Pulse 98 97 97 Oximetry 05/11/22 05/11/22 05/11/22 05:34 05:39 05:44 Temperature Pulse Rate 117 H 115 H 116 H Respiratory Rate Blood Pressure O2 Sat by Pulse 98 98 99 Oximetry 05/11/22 05/11/22 05/11/22 05:45 05:49 05:54 Temperature Pulse Rate 114 H 121 H 117 H Respiratory Rate Blood Pressure 105/57 O2 Sat by Pulse 97 97 Oximetry 05/11/22 05/11/22 05/11/22 05:59 06:04 06:09 Temperature Pulse Rate 119 H 107 H 109 H Respiratory Rate Blood Pressure O2 Sat by Pulse 99 100 98 Oximetry 05/11/22 05/11/22 05/11/22 06:14 06:15 06:19 Temperature Pulse Rate 94 H 92 H 96 H Respiratory Rate Blood Pressure 103/55 O2 Sat by Pulse 97 97 Oximetry 05/11/22 05/11/22 05/11/22 06:24 06:29 06:34 Temperature Pulse Rate 92 H 108 H 105 H Respiratory Rate Blood Pressure O2 Sat by Pulse 98 100 100 Oximetry 05/11/22 05/11/22 05/11/22 06:39 06:44 06:45 Temperature Pulse Rate 104 H 98 H 96 H Respiratory Rate Blood Pressure 115/75 O2 Sat by Pulse 100 99 Oximetry 05/11/22 05/11/22 05/11/22 06:49 06:54 06:59 Temperature Pulse Rate 92 H 93 H 98 H Respiratory Rate Blood Pressure O2 Sat by Pulse 98 98 97 Oximetry 05/11/22 05/11/22 05/11/22 07:04 07:09 07:14 Temperature Pulse Rate 104 H 99 H 99 H Respiratory Rate Blood Pressure O2 Sat by Pulse 97 98 98 Oximetry 05/11/22 05/11/22 05/11/22 07:15 07:19 07:24 Temperature Pulse Rate 96 H 98 H 99 H Respiratory Rate Blood Pressure 126/70 O2 Sat by Pulse 98 100 Oximetry 05/11/22 05/11/22 05/11/22 07:29 07:34 07:39 Temperature Pulse Rate 101 H 102 H 96 H Respiratory Rate Blood Pressure O2 Sat by Pulse 98 99 100 Oximetry 05/11/22 05/11/22 05/11/22 07:44 07:45 07:49 Temperature Pulse Rate 86 87 89 Respiratory Rate Blood Pressure 120/77 O2 Sat by Pulse 100 100 Oximetry 05/11/22 05/11/22 05/11/22 07:54 07:59 08:04 Temperature Pulse Rate 81 86 87 Respiratory Rate Blood Pressure O2 Sat by Pulse 100 100 100 Oximetry 05/11/22 05/11/22 05/11/22 08:09 08:14 08:15 Temperature Pulse Rate 85 86 87 Respiratory Rate Blood Pressure 114/74 O2 Sat by Pulse 100 100 Oximetry 05/11/22 05/11/22 05/11/22 08:19 08:24 08:29 Temperature Pulse Rate 88 89 80 Respiratory Rate Blood Pressure O2 Sat by Pulse 100 100 100 Oximetry 05/11/22 05/11/22 05/11/22 08:34 08:39 08:44 Temperature Pulse Rate 114 H 97 H 98 H Respiratory Rate Blood Pressure O2 Sat by Pulse 100 99 99 Oximetry 05/11/22 05/11/22 05/11/22 08:45 08:49 08:54 Temperature Pulse Rate 98 H 97 H 92 H Respiratory Rate Blood Pressure 123/71 O2 Sat by Pulse 99 99 Oximetry 05/11/22 05/11/22 05/11/22 08:59 09:04 09:07 Temperature Pulse Rate 98 H 100 H 120 H Respiratory Rate Blood Pressure O2 Sat by Pulse 99 100 93 Oximetry 05/11/22 05/11/22 05/11/22 09:09 09:14 09:15 Temperature Pulse Rate 111 H 105 H 122 H Respiratory Rate Blood Pressure 125/87 O2 Sat by Pulse 98 99 Oximetry 05/11/22 05/11/22 05/11/22 09:19 09:24 09:29 Temperature Pulse Rate 103 H 111 H 105 H Respiratory Rate Blood Pressure O2 Sat by Pulse 97 99 100 Oximetry 05/11/22 05/11/22 05/11/22 09:34 09:39 09:44 Temperature Pulse Rate 100 H 102 H 100 H Respiratory Rate Blood Pressure O2 Sat by Pulse 100 100 100 Oximetry 05/11/22 05/11/22 05/11/22 09:45 09:49 09:54 Temperature Pulse Rate 107 H 104 H 96 H Respiratory Rate Blood Pressure 116/75 O2 Sat by Pulse 100 100 Oximetry 05/11/22 05/11/22 05/11/22 09:59 10:04 10:09 Temperature Pulse Rate 95 H 98 H 99 H Respiratory Rate Blood Pressure O2 Sat by Pulse 100 100 100 Oximetry 05/11/22 05/11/22 05/11/22 10:14 10:15 10:19 Temperature Pulse Rate 99 H 98 H 99 H Respiratory Rate Blood Pressure 103/60 O2 Sat by Pulse 100 100 Oximetry 05/11/22 05/11/22 05/11/22 10:24 10:29 10:34 Temperature Pulse Rate 117 H 104 H 105 H Respiratory Rate Blood Pressure O2 Sat by Pulse 100 100 100 Oximetry - Exam Breasts: normal Cardiovascular: Regular rate Lungs: Clear to auscultation, Normal air movement Abdomen: Present: normal appearance, soft, normal bowel sounds Uterus: Present: normal, firm, fundal height above umbilicus FHR: category 2 FHR comments: FHR: 168; decreased varability, -accels, -decels Uterine Contraction Monitor Mode: Internal Cervical Dilatation: 4 (Clear fluid upon AROM at 1027) Cervical Effacement Percentage: 60 station: -2 Uterine Contraction Frequency (min): 5 Uterine Contraction Pattern: Regular Uterine Tone Measurement Phase: Resting Uterine Contraction Intensity: Mild Extremities: normal - Labs Labs: Abnormal Labs 05/09/22 05/09/22 05/09/22 22:30 22:30 22:30 RBC 3.43 L Hgb 9.9 L Hct 29.8 L RDW 12.9 L Seg Neuts % (Manual) 93.0 H Lymphocytes % (Manual) 4.0 L Lymphocytes # (Manual) 0.2 L Sodium 131 L Carbon Dioxide 17 L Magnesium Alkaline Phosphatase 163 H Lactate Dehydrogenase 246 H Total Protein 8.4 H Albumin 2.7 L Urine WBC (Auto) 54.0 H Urine Creatinine Urine Total Protein 05/09/22 05/10/22 22:30 17:46 RBC Hgb Hct RDW Seg Neuts % (Manual) Lymphocytes % (Manual) Lymphocytes # (Manual) Sodium Carbon Dioxide Magnesium 6.90 H Alkaline Phosphatase Lactate Dehydrogenase Total Protein Albumin Urine WBC (Auto) Urine Creatinine 206.1 H Urine Total Protein 92 H Laboratory Results - last 24 hr 05/10/22 17:46 Magnesium 6.90 H
[2022-05-11] MEDS ORDERED: AMPICILLIN/NS 2 GM/100 ML 2 GM/100 ML BAG IV ONE (11:30)
--- NOTE | 2022-05-11 14:24 | Progress Note ---
Assessment and Plan A: IUP @ 37 1/7 Weeks Category II Tracing Eclampsia Protracted Labor GBS Unknown P: Continue GBS Prophylaxis Continue MagSO4 as ordered Continue Standard Magnesium Precautions Consult Dr. Karla Bates Subjective - Subjective Date of service: 05/11/22 Principal diagnosis: 37.4 weeks Eclampsia Patient reports: movement normal, other (Resting Well under epidural anesthesia) Objective - Vital Signs Vital Signs: Vital Signs - 12hr 05/11/22 05/11/22 05/11/22 02:24 02:28 02:29 Temperature Pulse Rate 127 H 107 H 110 H Respiratory Rate Blood Pressure 109/59 O2 Sat by Pulse 100 100 Oximetry 05/11/22 05/11/22 05/11/22 02:34 02:39 02:42 Temperature Pulse Rate 109 H 120 H 117 H Respiratory Rate Blood Pressure 149/82 O2 Sat by Pulse 100 97 Oximetry 05/11/22 05/11/22 05/11/22 02:44 02:49 02:54 Temperature Pulse Rate 104 H 101 H 102 H Respiratory Rate Blood Pressure O2 Sat by Pulse 99 99 98 Oximetry 05/11/22 05/11/22 05/11/22 02:58 02:59 03:01 Temperature Pulse Rate 103 H 105 H 94 H Respiratory Rate Blood Pressure 113/69 111/70 O2 Sat by Pulse 98 Oximetry 05/11/22 05/11/22 05/11/22 03:04 03:09 03:12 Temperature Pulse Rate 101 H 100 H 102 H Respiratory Rate Blood Pressure 113/70 O2 Sat by Pulse 100 100 Oximetry 05/11/22 05/11/22 05/11/22 03:14 03:19 03:24 Temperature Pulse Rate 98 H 98 H 100 H Respiratory Rate Blood Pressure O2 Sat by Pulse 100 100 100 Oximetry 05/11/22 05/11/22 05/11/22 03:27 03:28 03:29 Temperature Pulse Rate 96 H 126 H 100 H Respiratory Rate Blood Pressure 110/72 O2 Sat by Pulse 85 100 Oximetry 05/11/22 05/11/22 05/11/22 03:34 03:39 03:43 Temperature Pulse Rate 108 H 107 H 99 H Respiratory Rate Blood Pressure 119/65 O2 Sat by Pulse 100 100 Oximetry 05/11/22 05/11/22 05/11/22 03:44 03:49 03:54 Temperature Pulse Rate 99 H 101 H 105 H Respiratory Rate Blood Pressure O2 Sat by Pulse 100 100 100 Oximetry 05/11/22 05/11/22 05/11/22 03:58 03:59 04:04 Temperature Pulse Rate 100 H 101 H 101 H Respiratory Rate Blood Pressure 127/62 O2 Sat by Pulse 100 100 Oximetry 05/11/22 05/11/22 05/11/22 04:09 04:12 04:14 Temperature Pulse Rate 108 H 105 H 103 H Respiratory Rate Blood Pressure 113/61 O2 Sat by Pulse 100 100 Oximetry 05/11/22 05/11/22 05/11/22 04:19 04:24 04:27 Temperature Pulse Rate 108 H 102 H 131 H Respiratory Rate Blood Pressure 116/61 O2 Sat by Pulse 100 100 Oximetry 05/11/22 05/11/22 05/11/22 04:29 04:34 04:39 Temperature Pulse Rate 126 H 126 H 118 H Respiratory Rate Blood Pressure O2 Sat by Pulse 97 95 99 Oximetry 05/11/22 05/11/22 05/11/22 04:42 04:44 04:49 Temperature Pulse Rate 110 H 110 H 126 H Respiratory Rate Blood Pressure 110/57 O2 Sat by Pulse 96 97 Oximetry 05/11/22 05/11/22 05/11/22 04:54 04:57 04:59 Temperature Pulse Rate 109 H 106 H 121 H Respiratory Rate Blood Pressure 116/64 O2 Sat by Pulse 100 98 Oximetry 05/11/22 05/11/22 05/11/22 05:04 05:09 05:12 Temperature Pulse Rate 118 H 124 H 116 H Respiratory Rate Blood Pressure 86/50 O2 Sat by Pulse 97 97 Oximetry 05/11/22 05/11/22 05/11/22 05:14 05:19 05:24 Temperature Pulse Rate 118 H 118 H 130 H Respiratory Rate Blood Pressure O2 Sat by Pulse 98 98 98 Oximetry 05/11/22 05/11/22 05/11/22 05:29 05:30 05:34 Temperature 98.1 F Pulse Rate 112 H 117 H Respiratory 18 Rate Blood Pressure O2 Sat by Pulse 97 97 98 Oximetry 05/11/22 05/11/22 05/11/22 05:39 05:44 05:45 Temperature Pulse Rate 115 H 116 H 114 H Respiratory Rate Blood Pressure 105/57 O2 Sat by Pulse 98 99 Oximetry 05/11/22 05/11/2205/11/22 05:49 05:54 05:59 Temperature Pulse Rate 121 H 117 H 119 H Respiratory Rate Blood Pressure O2 Sat by Pulse 97 97 99 Oximetry 05/11/22 05/11/22 05/11/22 06:04 06:09 06:14 Temperature Pulse Rate 107 H 109 H 94 H Respiratory Rate Blood Pressure O2 Sat by Pulse 100 98 97 Oximetry 05/11/22 05/11/22 05/11/22 06:15 06:19 06:24 Temperature Pulse Rate 92 H 96 H 92 H Respiratory Rate Blood Pressure 103/55 O2 Sat by Pulse 97 98 Oximetry 05/11/22 05/11/22 05/11/22 06:29 06:34 06:39 Temperature Pulse Rate 108 H 105 H 104 H Respiratory Rate Blood Pressure O2 Sat by Pulse 100 100 100 Oximetry 05/11/22 05/11/22 05/11/22 06:44 06:45 06:49 Temperature Pulse Rate 98 H 96 H 92 H Respiratory Rate Blood Pressure 115/75 O2 Sat by Pulse 99 98 Oximetry 05/11/22 05/11/22 05/11/22 06:54 06:59 07:04 Temperature Pulse Rate 93 H 98 H 104 H Respiratory Rate Blood Pressure O2 Sat by Pulse 98 97 97 Oximetry 05/11/22 05/11/22 05/11/22 07:09 07:14 07:15 Temperature Pulse Rate 99 H 99 H 96 H Respiratory Rate Blood Pressure 126/70 O2 Sat by Pulse 98 98 Oximetry 05/11/22 05/11/22 05/11/22 07:19 07:24 07:29 Temperature Pulse Rate 98 H 99 H 101 H Respiratory Rate Blood Pressure O2 Sat by Pulse 98 100 98 Oximetry 05/11/22 05/11/22 05/11/22 07:34 07:39 07:44 Temperature Pulse Rate 102 H 96 H 86 Respiratory Rate Blood Pressure O2 Sat by Pulse 99 100 100 Oximetry 05/11/22 05/11/22 05/11/22 07:45 07:49 07:54 Temperature Pulse Rate 87 89 81 Respiratory Rate Blood Pressure 120/77 O2 Sat by Pulse 100 100 Oximetry 05/11/22 05/11/22 05/11/22 07:59 08:04 08:09 Temperature Pulse Rate 86 87 85 Respiratory Rate Blood Pressure O2 Sat by Pulse 100 100 100 Oximetry 05/11/22 05/11/22 05/11/22 08:14 08:15 08:19 Temperature Pulse Rate 86 87 88 Respiratory Rate Blood Pressure 114/74 O2 Sat by Pulse 100 100 Oximetry 05/11/22 05/11/22 05/11/22 08:24 08:29 08:34 Temperature Pulse Rate 89 80 114 H Respiratory Rate Blood Pressure O2 Sat by Pulse 100 100 100 Oximetry 05/11/22 05/11/22 05/11/22 08:39 08:44 08:45 Temperature Pulse Rate 97 H 98 H 98 H Respiratory Rate Blood Pressure 123/71 O2 Sat by Pulse 99 99 Oximetry 05/11/22 05/11/22 05/11/22 08:49 08:54 08:59 Temperature Pulse Rate 97 H 92 H 98 H Respiratory Rate Blood Pressure O2 Sat by Pulse 99 99 99 Oximetry 05/11/22 05/11/22 05/11/22 09:04 09:07 09:09 Temperature Pulse Rate 100 H 120 H 111 H Respiratory Rate Blood Pressure O2 Sat by Pulse 100 93 98 Oximetry 05/11/22 05/11/22 05/11/22 09:14 09:15 09:19 Temperature Pulse Rate 105 H 122 H 103 H Respiratory Rate Blood Pressure 125/87 O2 Sat by Pulse 99 97 Oximetry 05/11/22 05/11/22 05/11/22 09:24 09:29 09:34 Temperature Pulse Rate 111 H 105 H 100 H Respiratory Rate Blood Pressure O2 Sat by Pulse 99 100 100 Oximetry 05/11/22 05/11/22 05/11/22 09:39 09:44 09:45 Temperature Pulse Rate 102 H 100 H 107 H Respiratory Rate Blood Pressure 116/75 O2 Sat by Pulse 100 100 Oximetry 05/11/22 05/11/22 05/11/22 09:49 09:54 09:59 Temperature Pulse Rate 104 H 96 H 95 H Respiratory Rate Blood Pressure O2 Sat by Pulse 100 100 100 Oximetry 05/11/22 05/11/22 05/11/22 10:04 10:09 10:14 Temperature Pulse Rate 98 H 99 H 99 H Respiratory Rate Blood Pressure O2 Sat by Pulse 100 100 100 Oximetry 05/11/22 05/11/22 05/11/22 10:15 10:19 10:24 Temperature Pulse Rate 98 H 99 H 117 H Respiratory Rate Blood Pressure 103/60 O2 Sat by Pulse 100 100 Oximetry 05/11/22 05/11/22 05/11/22 10:29 10:34 10:39 Temperature Pulse Rate 104 H 105 H 101 H Respiratory Rate Blood Pressure O2 Sat by Pulse 100 100 100 Oximetry 05/11/22 05/11/22 05/11/22 10:44 10:46 10:49 Temperature Pulse Rate 118 H 111 H 102 H Respiratory Rate Blood Pressure 136/87 O2 Sat by Pulse 100 100 Oximetry 05/11/22 05/11/22 05/11/22 10:54 10:59 11:04 Temperature Pulse Rate 121 H 121 H 99 H Respiratory Rate Blood Pressure O2 Sat by Pulse 100 100 100 Oximetry 05/11/22 05/11/22 05/11/22 11:09 11:14 11:15 Temperature Pulse Rate 95 H 102 H 96 H Respiratory Rate Blood Pressure 111/71 O2 Sat by Pulse 100 100 Oximetry 05/11/22 05/11/22 05/11/22 11:19 11:24 11:29 Temperature Pulse Rate 106 H 104 H 107 H Respiratory Rate Blood Pressure O2 Sat by Pulse 100 100 100 Oximetry 05/11/22 05/11/22 05/11/22 11:34 11:39 11:44 Temperature Pulse Rate 104 H 106 H 101 H Respiratory Rate Blood Pressure O2 Sat by Pulse 100 100 100 Oximetry 05/11/22 05/11/22 05/11/22 11:47 11:49 11:54 Temperature Pulse Rate 100 H 101 H 102 H Respiratory Rate Blood Pressure 122/75 O2 Sat by Pulse 100 100 Oximetry 05/11/22 05/11/22 05/11/22 11:59 12:04 12:09 Temperature Pulse Rate 105 H 109 H 131 H Respiratory Rate Blood Pressure O2 Sat by Pulse 100 100 100 Oximetry 05/11/22 05/11/22 05/11/22 12:14 12:15 12:19 Temperature Pulse Rate 136 H 117 H 110 H Respiratory Rate Blood Pressure 133/73 O2 Sat by Pulse 100 100 Oximetry 05/11/22 05/11/22 05/11/22 12:24 12:29 12:34 Temperature Pulse Rate 113 H 119 H 111 H Respiratory Rate Blood Pressure O2 Sat by Pulse 100 100 100 Oximetry 05/11/22 05/11/22 05/11/22 12:39 12:44 12:45 Temperature Pulse Rate 111 H 120 H 102 H Respiratory Rate Blood Pressure 117/74 O2 Sat by Pulse 100 100 Oximetry 05/11/22 05/11/22 05/11/22 12:49 12:54 12:59 Temperature Pulse Rate 102 H 99 H 109 H Respiratory Rate Blood Pressure O2 Sat by Pulse 100 100 100 Oximetry 05/11/22 05/11/22 05/11/22 13:04 13:09 13:14 Temperature Pulse Rate 98 H 101 H 103 H Respiratory Rate Blood Pressure O2 Sat by Pulse 100 100 100 Oximetry 05/11/22 05/11/22 05/11/22 13:15 13:19 13:24 Temperature Pulse Rate 102 H 104 H 105 H Respiratory Rate Blood Pressure 108/63 O2 Sat by Pulse 100 100 Oximetry 05/11/22 05/11/22 05/11/22 13:29 13:34 13:39 Temperature Pulse Rate 104 H 107 H 121 H Respiratory Rate Blood Pressure O2 Sat by Pulse 100 100 100 Oximetry 05/11/22 05/11/22 05/11/22 13:44 13:45 13:49 Temperature Pulse Rate 95 H 102 H 102 H Respiratory Rate Blood Pressure 109/71 O2 Sat by Pulse 100 100 Oximetry 05/11/22 05/11/22 05/11/22 13:54 13:59 14:04 Temperature Pulse Rate 104 H 97 H 90 Respiratory Rate Blood Pressure O2 Sat by Pulse 100 100 100 Oximetry 05/11/22 05/11/22 05/11/22 14:09 14:14 14:15 Temperature Pulse Rate 104 H 111 H 108 H Respiratory Rate Blood Pressure 116/80 O2 Sat by Pulse 100 100 Oximetry 05/11/22 14:19 Temperature Pulse Rate 100 H Respiratory Rate Blood Pressure O2 Sat by Pulse 100 Oximetry - Exam Cardiovascular: Regular rate Lungs: Normal air movement Abdomen: Present: normal appearance, soft Uterus: Present: normal, firm, fundal height above umbilicus FHR: category 2 Uterine Contraction Monitor Mode: Internal Cervical Dilatation: 4 Cervical Effacement Percentage: 60 station: -2 Uterine Contraction Frequency (min): 2-3 Uterine Contraction Pattern: Regular Uterine Tone Measurement Phase: Resting Uterine Contraction Intensity: Moderate Extremities: normal - Labs Labs: Abnormal Labs 05/09/22 05/09/22 05/09/22 22:30 22:30 22:30 RBC 3.43 L Hgb 9.9 L Hct 29.8 L RDW 12.9 L Seg Neuts % (Manual) 93.0 H Lymphocytes % (Manual) 4.0 L Lymphocytes # (Manual) 0.2 L Sodium 131 L Carbon Dioxide 17 L Magnesium Alkaline Phosphatase 163 H Lactate Dehydrogenase 246 H Total Protein 8.4 H Albumin 2.7 L Urine WBC (Auto) 54.0 H Urine Creatinine Urine Total Protein 05/09/22 05/10/22 22:30 17:46 RBC Hgb Hct RDW Seg Neuts % (Manual) Lymphocytes % (Manual) Lymphocytes # (Manual) Sodium Carbon Dioxide Magnesium 6.90 H Alkaline Phosphatase Lactate Dehydrogenase Total Protein Albumin Urine WBC (Auto) Urine Creatinine 206.1 H Urine Total Protein 92 H Laboratory Results - last 24 hr 05/10/22 17:46 Magnesium 6.90 H
[2022-05-11] MEDS ORDERED: AMPICILLIN/NS 1 GM/50 ML 1 GM/50 ML BAG IV SCH (15:30)
[2022-05-11] MEDS ORDERED: BUPIVACAINE/PF (0.25%) 2.5 MG/ML 10 ML VIAL INFILTRATI ONE (15:36)
[2022-05-11] MEDS ORDERED: FAMOTIDINE 20 MG/2 ML INJ IV ONE (16:13)
[2022-05-11] MEDS ORDERED: METOCLOPRAMIDE 10 MG/2 ML INJ IV ONE (16:13)
[2022-05-11] MEDS ORDERED: LACTATED RINGERS 1,000 ML IV SCH (16:15)
--- NOTE | 2022-05-11 16:42 | Event Note ---
Date: 05/11/22 21-year-old at 37 and 5 weeks who was admitted for induction of labor secondary to eclampsia. The patient has been undergoing induction and has had an arrest of dilatation and also evidence of intermittent late decelerations on tracing. She has had no advancement of her cervical dilatation despite adequate contractility. The patient is counseled for primary delivery.
--- NOTE | 2022-05-11 16:43 | Procedure Note ---
OB Delivery Note - Delivery Date of Delivery: 05/11/22 Surgeon: JUAN M MENDEZ Estimated blood loss: other (Qbl 1270ml) - Section Preop diagnosis: arrest of dilation, nonreassuring FHR tracing Postop diagnosis: same section procedure: section, primary low transverse Disposition: PACU Complications: none - A at 1 minute: 3 at 5 minutes: 7 Gender: Male (10-minute of 9; weight 5 pounds 5 ounces)
[2022-05-11] MEDS ORDERED: WITCH HAZEL/ GLYCERIN PAD TP PRN (16:44)
[2022-05-11] MEDS ORDERED: KETOROLAC 30 MG/1 ML INJ IV PRN (16:44)
[2022-05-11] MEDS ORDERED: ONDANSETRON 4 MG/2 ML INJ IV PRN ×2 (16:44→18:43)
[2022-05-11] MEDS ORDERED: SIMETHICONE 80 MG CHEW TAB PO PRN (16:44)
[2022-05-11] MEDS ORDERED: LANOLIN/ZINC/DIMETHICONE (LANSINOH) 7 GM TP PRN (16:44)
[2022-05-11] MEDS ORDERED: IBUPROFEN 600 MG TAB PO PRN (16:44)
[2022-05-11] MEDS ORDERED: ACETAMINOPHEN 325 MG TAB PO PRN (16:44)
--- NOTE | 2022-05-11 16:44 | Operative Report ---
Operative Report Operative Report: Date of surgery: May 11, 2022 Preoperative diagnosis: at 37+5 weeks; eclampsia; arrest of dilatat ion; nonreassuring heart rate tracing Postoperative diagnosis: Same as above Procedure: Primary low transverse delivery Surgeon: Karla Ortega M.D. Anesthesia: Regional Estimated blood loss:Qbl 1270 mL Findings: Liveborn male infant with Apgars of 3 7 and 9 weight 5 pounds 5 ounces Indications: 21-year-old at 37+5 weeks being induced for eclampsia. The patient has undergone induction with adequate contractility and has had arrest of dilatation with worsening of the tracing. Procedure: The patient was taken to the operating room and given regional anesthesia without complication. She was prepped and draped in a normal sterile fashion. A Pfannenstiel skin incision was made down to layer the fascia which was nicked in the midline extended laterally with the Bovie cautery. The superior aspect of the rectus fascia was grasped with Michael clamps x2 and the rectus muscles off sharply. This was done in inferior fashion as well. The rectus muscle midline and peritoneum entered bluntly. An Raulito retractor was then inserted. A bladder blade was placed. The vesicouterine peritoneum was then entered sharply with Metzenbaum scissors. A bladder flap was created digitally. A low transverse uterine incision was then made and extended digitally. There was clear fluid upon entry into the uterine cavity. The head was delivered through the incision with fundal pressure. A nuchal cord x1 was manually reduced. The cord was clamped and cut x2 and infant was passed off to pediatrics. The placenta was then manually extracted. The uterus was then exteriorized and cleared of clots and debris. The uterine incision was then closed in a running locked fashion with 0 Vicryl additional imbricating stitch was applied for 2 layer closure. The posterior cul-de-sac was then copiously irrigated. The uterus was replaced back into the abdomen and pelvis were the gutters were then irrigated. The Raulito retractor was then removed. The peritoneum was then reapproximated with 3-0 Vicryl incorporating the rectus muscle. The fascia was then closed with 0 Vicryl in a running fashion. The skin was then reapproximated with 3-0 Monocryl on a Marco needle subcuticular fashion. Steri-Strips to place across the incision and a Crede procedures performed at the end of the surgery. A pressure dressing was applied to the incision. The surgery productive of a liveborn male with Apgars of 3 7 and 9 weight 5 pounds 5 ounces. The patient was taken to the recovery room in stable condition. All sponge laps and needle counts correct x2.
[2022-05-11] MEDS ORDERED: BICITRA ORAL LIQD 30ML PO ONE (17:00)
[2022-05-11] MEDS ORDERED: OXYTOCIN DRIP 30 UNITS/500 ML BAG IV SCH (17:00)
[2022-05-11] MEDS ORDERED: ceFAZolin/Water 2 GM/20 ML 2 GM/20 ML SYRINGE IV NR (17:00)
[2022-05-11] MEDS ORDERED: SODIUM CHLORIDE 0.9% 100 ML ONE (17:02)
[2022-05-11] MEDS ORDERED: BUPIVACAINE/PF (0.5%) 5 MG/1 ML 30 ML VIAL INFILTRATI ONE (17:02)
[2022-05-11] MEDS ORDERED: BUPIVACAINE/PF (0.25%) 2.5 MG/ML 30 ML VIAL INFILTRATI ONE (17:05)
[2022-05-11] MEDS ORDERED: ceFAZolin/STERILE WATER 2 GM/20 ML SYRINGE IV ONE (17:15)
[2022-05-11] MEDS ORDERED: SODIUM CHLORIDE 0.9% IRR 1,500 ML BOTTLE IR ONE (17:20)
[2022-05-11] MEDS ORDERED: WATER FOR IRRIG STERILE 1,500 ML BOTTLE IR ONE (17:20)
[2022-05-11] MEDS ORDERED: KETAMINE/STERILE WATER 50 MG/ML SYRINGE ONE (17:34)
[2022-05-11] MEDS ORDERED: fentaNYL 100 MCG/2 ML INJ ONE ×2 (17:39→17:42)
[2022-05-11] MEDS ORDERED: ESMOLOL 100 MG/10 ML INJ IV ONE ×2 (17:45→17:49)
[2022-05-11] MEDS ORDERED: MIDAZOLAM 2 MG/2 ML INJ ONE (17:49)
[2022-05-11] MEDS ORDERED: HYDROmorphone 1 MG/1 ML INJ IV PRN (18:43)
[2022-05-11] MEDS ORDERED: PROMETHAZINE 25 MG RECT SUPP PR PRN (18:43)
[2022-05-11] MEDS ORDERED: MORPHINE 4 MG/1 ML INJ IV PRN (18:43)
[2022-05-11] MEDS ORDERED: PROMETHAZINE 25 MG TAB PO PRN (18:43)
--- NOTE | 2022-05-11 18:47 | Progress Note ---
Regional Anesthesia Block - Regional Anesthesia Block Start Time: 18:25 Stop Time: 18:34 Performed By:: JCARLOS BIGGS Procedure: During the pre-op interview the patient agreed to and signed a consent for a TAP block for post surgical pain management. After her C/S was completed a time out was performed prior to the start of the procedure. The Trans Abdominal Plane was identified bilaterally via ultrasound. The skin was prepped bilaterally with chlorhexidine and a 22g stimuplex needle was advanced to the area between the internal oblique muscle and the trans abdominal plane. Marcaine 0.25% 30mlwas injected under ultrasound guidance on the left and right side. Negative aspiration every 5mL, There was no change in the patients heart rate or rhythm and the patient tolerated the procedure well. No apparent complications were observed.
[2022-05-11] MEDS ORDERED: fentaNYL-BUPIV 2 MCG/ML-0.125% 200 MCG/100 ML BAG EPIDURAL SCH (19:00)
[2022-05-11] MEDS: MORPHINE 4 MG/1 ML INJ IV PRN (20:00)
[2022-05-11] MEDS: oxyCODONE /ACETAMINOPHEN 5-325MG TAB PO PRN (20:05)
[2022-05-11] MEDS: MAGNESIUM SULFATE 40GM/1000ML 40 GM/1,000 ML BAG IV SCH (20:11)
[2022-05-12 03:34] LABS: Hematocrit 29.1 % (30.3-42.9); Hemoglobin 9.7 gm/dl (10.1-14.3)
[2022-05-12] MEDS: HYDROmorphone 1 MG/1 ML INJ IV PRN ×2 (08:11→17:26)
--- NOTE | 2022-05-12 10:00 | Post Anesthesia Evaluation ---
- Post Anesthesia Evaluation Patient Participated: Yes Airway Patent: Yes Stable Respiratory Function: Yes Nausea/Vomiting: No Temp > 96.8F: Yes Pain Manageable: Yes Adequeate Hydration: Yes Anesthesia Complications: No Block Receding Appropriately: Yes Patient on Ventilator: No
[2022-05-12] MEDS: oxyCODONE /ACETAMINOPHEN 5-325MG TAB PO PRN ×2 (14:10→21:29)
[2022-05-12] MEDS: MORPHINE 4 MG/1 ML INJ IV PRN (19:52)
[2022-05-12] MEDS: HYDROXYCHLOROQUINE 200 MG TAB PO SCH (21:39)
[2022-05-12] MEDS: predniSONE 5 MG TAB PO SCH (21:40)
[2022-05-13] MEDS: oxyCODONE /ACETAMINOPHEN 5-325MG TAB PO PRN ×3 (01:31→18:54)
--- NOTE | 2022-05-13 08:00 | Progress Note ---
Assessment and Plan A: POD # 2 - stable P: Plan discharge home in am Discharge instructions given Subjective - Subjective Date of service: 05/13/22 Principal diagnosis: 37.4 weeks Eclampsia POD # 2 - stable Patient reports: appetite normal [place]: doing well Objective - Vital Signs Latest vital signs: Vital Signs Temp Pulse Resp BP BP Pulse Ox Pulse Ox 05/13/22 05:52 18 05/13/22 05:00 90 18 124/79 98 05/13/22 01:31 18 05/13/22 00:47 97.9 F 18 134/87 05/12/22 22:57 109 H 117/66 100 05/12/22 22:29 16 05/12/22 21:29 18 05/12/22 20:22 16 05/12/22 20:17 100 05/12/22 20:10 87 136/94 100 05/12/22 19:52 18 05/12/22 18:32 100 05/12/22 18:00 97.3 F L 81 18 123/87 99 05/12/22 17:30 97 05/12/22 17:25 98.6 F 20 05/12/22 16:18 97 05/12/22 15:26 88 117/73 05/12/22 15:25 58 L 86 05/12/22 14:30 117 H 82 L 97 05/12/22 14:29 101 H 99 05/12/22 14:27 93 H 100 05/12/22 14:22 94 H 100 05/12/22 14:17 91 H 100 05/12/22 14:12 95 H 99 05/12/22 14:07 101 H 100 05/12/22 14:02 88 100 05/12/22 13:57 92 H 100 05/12/22 13:52 92 H 100 05/12/22 13:47 94 H 99 05/12/22 13:42 94 H 100 05/12/22 13:37 92 H 100 05/12/22 13:32 97 H 100 05/12/22 13:27 101 H 100 05/12/22 13:22 86 117/76 100 05/12/22 13:17 88 99 05/12/22 13:12 87 99 05/12/22 13:07 86 100 05/12/22 13:02 86 100 05/12/22 12:57 85 100 05/12/22 12:52 88 99 05/12/22 12:47 85 100 05/12/22 12:42 87 100 05/12/22 12:37 87 100 05/12/22 12:32 88 99 05/12/22 12:27 86 99 05/12/22 12:22 87 122/78 99 05/12/22 12:17 96 H 100 05/12/22 12:12 103 H 99 05/12/22 12:07 89 99 05/12/22 12:02 88 100 05/12/22 12:00 97 05/12/22 11:57 84 100 05/12/22 11:52 96 H 100 05/12/22 11:47 98 H 100 05/12/22 11:42 103 H 100 05/12/22 11:37 112 H 100 05/12/22 11:32 99 H 99 05/12/22 11:27 83 100 05/12/22 11:22 83 112/71 100 05/12/22 11:17 82 100 05/12/22 11:12 85 99 05/12/22 11:07 79 100 05/12/22 11:02 83 99 05/12/22 10:57 83 99 05/12/22 10:53 80 94 05/12/22 10:52 79 98 05/12/22 10:47 82 99 05/12/22 10:42 84 99 05/12/22 10:37 85 98 05/12/22 10:34 79 91 97 05/12/22 10:32 83 99 05/12/22 10:27 85 99 05/12/22 10:22 84 119/78 99 05/12/22 10:17 81 99 05/12/22 10:12 81 98 05/12/22 10:07 81 99 05/12/22 10:02 82 99 05/12/22 09:57 85 98 05/12/22 09:52 83 99 05/12/22 09:47 85 99 05/12/22 09:42 79 98 05/12/22 09:37 77 100 05/12/22 09:32 80 98 05/12/22 09:27 81 98 05/12/22 09:22 78 112/69 98 05/12/22 09:17 79 98 05/12/22 09:12 77 98 05/12/22 09:07 79 98 05/12/22 09:02 77 98 05/12/22 08:57 78 100 05/12/22 08:52 82 98 05/12/22 08:47 79 99 05/12/22 08:42 78 98 05/12/22 08:37 77 99 97 05/12/22 08:32 79 99 05/12/22 08:27 78 99 05/12/22 08:22 79 130/87 99 05/12/22 08:17 98.2 F 82 18 99 05/12/22 08:12 79 98 05/12/22 08:07 78 99 05/12/22 08:02 73 100 05/12/22 07:57 75 100 Intake and Output 05/12/22 05/13/22 05/13/22 22:59 06:59 14:59 Intake Total 240 Output Total 500 Balance -260 Intake: Oral 240 Output: Urine 500 Indwelling Catheter 500 Other: Total, Intake Amount 120 Total, Output Amount 500 # Voids Indwelling Catheter 1 - Exam Breasts: Present: deferred Cardiovascular: Present: Regular rate Lungs: Present: Clear to auscultation Abdomen: Present: soft Vulva: both: normal Uterus: Present: fundal height below umbilicus Deep Tendon Reflex Grade: Normal +2 Incision: Present: intact - Labs Labs: Abnormal lab results 05/12/22 05/12/22 Range/Units 11:56 18:44 Magnesium 7.90 H 5.10 H (1.7-2.3) mg/dL
--- NOTE | 2022-05-13 08:06 | Discharge Summary ---
Providers - Providers Date of Admission: 05/10/22 00:26 Date of discharge: 05/14/22 Attending physician: JONAS LEAL Primary care physician: JONAS LEAL Hospitalization Reason for admission: other (eclamptic seizure) Delivery: Procedure: primary low transverse complications: none Discharge diagnosis: IUP at term delivered baby: male Condition at discharge: Good Disposition: 01 HOME / SELF CARE / HOMELESS Plan - Provider Discharge Summary Activity: routine, no sex for 6 weeks, no strenuous exercise Diet: routine Instructions: routine Additional instructions: [] Smoking cessation referral if applicable(refer to patient education folder for contact #) [] Refer to [facility] Booklet Call your doctor immediately for: * Fever > 100.5 * Heavy vaginal bleeding ( >1 pad per hour) * Severe persistent headache * Shortness of breath * Reddened, hot, painful area to leg or breast * Drainage or odor from incision. * Keep incision clean and dry at all times and follow doctor's instructions regarding bathing/showering - Follow up plan Follow up: JONAS LEAL MD [Primary Care Provider] - 14 Days
[2022-05-13] MEDS: HYDROXYCHLOROQUINE 200 MG TAB PO SCH (10:18)
[2022-05-13] MEDS: predniSONE 5 MG TAB PO SCH (10:18)
[2022-05-13] MEDS: HYDROmorphone 1 MG/1 ML INJ IV PRN (13:45)
[2022-05-14] MEDS: oxyCODONE /ACETAMINOPHEN 5-325MG TAB PO PRN ×3 (01:15→10:17)
[2022-05-14] MEDS: HYDROXYCHLOROQUINE 200 MG TAB PO SCH (10:17)
[2022-05-14] MEDS: predniSONE 5 MG TAB PO SCH (10:17)
[2022-05-14 11:55] VITALS: BP 133/92
== END 2022-05-14 13:15 | disposition home or self-care (01) | DRG 765 ==
LOC: TRG 21:37 → APU 21:40 → LD 05-10 00:26 → TRG 05-10 00:26 → OB 05-12 17:58
PROVIDERS: ADMIT Obstetrics & Gynecology; ATTEND Obstetrics & Gynecology
PROC: 10D00Z1 Extraction of Products of Conception, Low, Open Approach (ICD-10-PCS; principal; 2022-05-11)
PROC: 3E0T3BZ Introduction of Anesthetic Agent into Peripheral Nerves and Plexi, Percutaneous Approach (ICD-10-PCS; 2022-05-11)
DX: O76 Abnormality in fetal heart rate and rhythm complicating labor and delivery (principal); O15.1 Eclampsia complicating labor; Z20.822 Contact with and (suspected) exposure to COVID-19; Z3A.37 37 weeks gestation of pregnancy; O62.1 Secondary uterine inertia; Z37.0 Single live birth; M32.9 Systemic lupus erythematosus, unspecified; O75.89 Other specified complications of labor and delivery
CPT/HCPCS: 36415; 59025; 70450; 76816; 80053; 80307; 81001; 82140; 82570; 83615; 83735; 84156; 85007; 85014; 85018; 85025; 86850; 86900; 86901; 87040; 87086; G0378; J3490; J0290; J0595; J0690; J1170; J1885; J2250; J2270; J2590; J2765; J3010; J3475; J7120; J7512; Q0177; U0003